=== PATIENT | male | born 1955 | race Caucasian/White ===

== ENCOUNTER 2022-06-17 06:40 | Inpatient (IN) | payer MEDICARE, MEDICAID ==
[~2022-06-17] VITALS: Ht 165.1 cm; Wt 64.4 kg
[2022-06-17] VITALS (7 sets, daily range): BP systolic 105–193; BP diastolic 48–99
[2022-06-17] MEDS ORDERED: IODIXANOL 320MG/ML 100 ML BOTTLE IV ONE (07:34)
[2022-06-17] MEDS ORDERED: NITROGLYCERIN 50MCG/ML 10ML VIAL (CATH LAB) IV ONE (08:00)
[2022-06-17] MEDS ORDERED: NICARDIPINE 100MCG/ML 10ML VIAL (CATH LAB) IV ONE (08:00)
[2022-06-17] MEDS ORDERED: DEXTROSE 50% WATER 50ML SYRINGE IV ONE (08:01)
[2022-06-17] MEDS ORDERED: ASPI-1497 PO (08:14)
[2022-06-17] MEDS ORDERED: HYDR50TA55 PO (08:14)
[2022-06-17] MEDS ORDERED: ATOR40TA70 PO (08:14)
[2022-06-17] MEDS ORDERED: FOLI1TAB87 MT (08:14)
[2022-06-17] MEDS ORDERED: HYDR-4135 PO (08:14)
[2022-06-17] MEDS ORDERED: ISOS30TA12 PO (08:14)
[2022-06-17] MEDS ORDERED: FURO80TA3 PO (08:14)
[2022-06-17] MEDS ORDERED: METR-167 MT (08:14)
[2022-06-17] MEDS ORDERED: INSU100I22 SQ (08:16)
[2022-06-17] MEDS ORDERED: AMLO10TA80 PO (08:16)
[2022-06-17] MEDS ORDERED: FERR324T4 PO (08:16)
[2022-06-17] MEDS ORDERED: PANT40SU PO (08:16)
[2022-06-17] MEDS ORDERED: NIFE-32 PO (08:18)
[2022-06-17] MEDS ORDERED: LIDOCAINE HCL/PF 1% 10 MG/ML 5ML VIAL ONE ×2 (08:21→09:44)
[2022-06-17] MEDS ORDERED: FENTANYL CITRATE/PF 50MCG/ML 2ML VIAL ONE (08:21)
[2022-06-17] MEDS ORDERED: MIDAZOLAM HCL 2 MG/2 ML VIAL ONE (08:21)
[2022-06-17] MEDS ORDERED: HEPARIN 1000 UNITS/ML 10ML ONE (08:25)
[2022-06-17] MEDS ORDERED: ASPIRIN 325MG TABLET ONE (09:44)
[2022-06-17] MEDS ORDERED: CLOPIDOGREL 75MG TABLET ONE (09:44)
[2022-06-17] MEDS ORDERED: HYDRALAZINE 20MG/ML VIAL ONE (10:18)
[2022-06-17] MEDS ORDERED: GUAIFENESIN 200MG/10ML SUGAR FREE UDC PO PRN (10:45)
[2022-06-17] MEDS ORDERED: HYDROCODONE/ACETAMINOPHEN 5/325MG TABLET PO PRN (10:45)
[2022-06-17] MEDS ORDERED: IPRATROPIUM/ALBUTEROL 0.5-3(2.5)MG/3ML NEB NEB PRN (10:45)
[2022-06-17] MEDS ORDERED: CLONIDINE 0.1MG TABLET PO PRN (10:45)
[2022-06-17] MEDS ORDERED: MAGNESIUM/ALUMINUM HYDROXIDE/SIMETHICONE 30ML UDC PO PRN (10:45)
[2022-06-17] MEDS ORDERED: ONDANSETRON HCL 4MG/2ML INJ IV PRN (10:45)
[2022-06-17] MEDS ORDERED: ACETAMINOPHEN 325MG TABLET PO PRN ×2 (10:45)
[2022-06-17] MEDS ORDERED: HYDRALAZINE 20MG/ML VIAL IV PRN (11:00)
[2022-06-17] MEDS ORDERED: NALOXONE HCL 0.4MG/ML VIAL IV PRN ×2 (11:00→13:15)
[2022-06-17] MEDS ORDERED: FAMOTIDINE 20MG TABLET PO NR (13:00)
[2022-06-17] MEDS ORDERED: NIFEDIPINE XL 60MG TAB PO SCH (13:00)
[2022-06-17 15:33] LABS: BASOPHILS % 0.3 % (0.0-2.0); HEMATOCRIT. 36.2 % (42.0-52.0); HEMOGLOBIN. 12.2 g/dL (14.0-18.0); MEAN CORPUSCULAR HEMOGLOBIN 34.2 pg (28.0-32.0); MEAN CORPUSCULAR VOLUME 101.5 fL (80.0-94.0); MEAN PLATELET VOLUME 8.2 fl (7.4-10.4); MONOCYTES % 4.9 % (2.0-8.0); NEUTROPHILS % 83.8 % (40.0-76.0); PLATELET 278 x1000/uL (130-400); RED BLOOD CELL COUNT 3.57 mill/uL (4.7-6.1); RED CELL DISTRIBUTION WIDTH 15.8 % (11.6-14.6)
[2022-06-17 15:41] LABS: CHLORIDE 102 mEq/L (98-107)
[2022-06-17 15:49] LABS: PHOSPHORUS 4.5 mg/dL (2.5-4.9)
[2022-06-17] MEDS: HYDRALAZINE HCL 50MG TABLET PO SCH (16:00)
[2022-06-17] MEDS ORDERED: CLONIDINE 0.2MG TABLET PO PRN (16:45)
[2022-06-17] MEDS ORDERED: ISOSORBIDE DINITRATE 30MG TABLET PO SCH (17:00)
[2022-06-17] MEDS: OMEPRAZOLE 20MG CAPSULE EXTENDED RELEASE PO SCH (17:05)
[2022-06-17] MEDS ORDERED: DEXTROSE 50% WATER 50ML SYRINGE IV PRN (18:00)
[2022-06-17] MEDS: BLOOD SUGAR DIAGNOSTIC STRIP TEST SCH (20:37)
[2022-06-17] MEDS ORDERED: HYDRALAZINE HCL 50MG TABLET PO SCH (21:00)
[2022-06-17] MEDS ORDERED: ATORVASTATIN CALCIUM 40MG TABLET PO SCH (21:00)
[2022-06-17] MEDS: INSULIN LISPRO 100 UNITS/ML SUBCUT SCH (21:00)
[2022-06-18] VITALS (9 sets, daily range): BP systolic 116–172; BP diastolic 55–76
[2022-06-18] MEDS: OMEPRAZOLE 20MG CAPSULE EXTENDED RELEASE PO SCH (07:09)
[2022-06-18] MEDS: BLOOD SUGAR DIAGNOSTIC STRIP TEST SCH ×2 (07:09→11:20)
[2022-06-18] MEDS: INSULIN LISPRO 100 UNITS/ML SUBCUT SCH ×2 (07:20→13:03)
[2022-06-18 08:34] LABS: BASOPHILS % 0.3 % (0.0-2.0); EOSINOPHILS % 0.6 % (0.0-5.0); HEMATOCRIT. 29.3 % (42.0-52.0); HEMOGLOBIN. 9.8 g/dL (14.0-18.0); LYMPHOCYTES % 11.8 % (20.0-50.0); MEAN CORPUSCULAR HEMOGLOBIN 33.4 pg (28.0-32.0); MEAN CORPUSCULAR VOLUME 99.8 fL (80.0-94.0); MEAN PLATELET VOLUME 8.5 fl (7.4-10.4); MONOCYTES % 7.7 % (2.0-8.0); NEUTROPHILS % 79.6 % (40.0-76.0); PLATELET 236 x1000/uL (130-400); RED BLOOD CELL COUNT 2.94 mill/uL (4.7-6.1); RED CELL DISTRIBUTION WIDTH 15.8 % (11.6-14.6)
[2022-06-18] MEDS ORDERED: NIFEDIPINE XL 90MG TAB PO SCH (09:00)
[2022-06-18] MEDS ORDERED: NIFEDIPINE XL 60MG TAB PO SCH (09:00)
[2022-06-18] MEDS ORDERED: FOLIC ACID/VITAMIN B COMP W-C TABLET PO SCH (09:00)
[2022-06-18] MEDS: HYDRALAZINE HCL 50MG TABLET PO SCH ×2 (09:18)
[2022-06-18 09:25] LABS: T4 FREE 0.79 ng/dL (0.76-1.46)
[2022-06-18] MEDS ORDERED: CLOPIDOGREL 75MG TABLET PO SCH (12:45)
[2022-06-18] MEDS ORDERED: ASPIRIN 81MG EC TABLET PO SCH (12:45)
[2022-06-18] MEDS ORDERED: CLOP75TA15 PO (13:03)
[2022-06-18] MEDS ORDERED: ASPI-1497 PO (13:03)
[2022-06-18] MEDS ORDERED: METOCLOPRAMIDE HCL 5MG TABLET PO SCH (16:50)
[2022-06-18] MEDS ORDERED: EPOETIN ALFA-EPBX 4,000 UNIT/ML VIAL SUBCUT SCH (21:00)
== END 2022-06-18 16:03 | disposition home health service (06) | DRG 246 ==
LOC: CCL 06:40 → SUPCPDRO 10:36 → 3WST 10:44
PROVIDERS: ADMIT Internal Medicine Cardiovascular Disease; ATTEND Internal Medicine Cardiovascular Disease
PROC: 027034Z Dilation of Coronary Artery, One Artery with Drug-eluting Intraluminal Device, Percutaneous Approach (ICD-10-PCS; principal; 2022-06-17)
PROC: 4A023N7 Measurement of Cardiac Sampling and Pressure, Left Heart, Percutaneous Approach (ICD-10-PCS; 2022-06-17)
PROC: B211YZZ Fluoroscopy of Multiple Coronary Arteries using Other Contrast (ICD-10-PCS; 2022-06-17)
PROC: B2151ZZ Fluoroscopy of Left Heart using Low Osmolar Contrast (ICD-10-PCS; 2022-06-17)
PROC: 5A1D70Z Performance of Urinary Filtration, Intermittent, Less than 6 Hours Per Day (ICD-10-PCS; 2022-06-18)
DX: I25.10 Atherosclerotic heart disease of native coronary artery without angina pectoris (principal); N18.6 End stage renal disease; I13.2 Hypertensive heart and chronic kidney disease with heart failure and with stage 5 chronic kidney disease, or end stage renal disease; N25.81 Secondary hyperparathyroidism of renal origin; E11.51 Type 2 diabetes mellitus with diabetic peripheral angiopathy without gangrene; E11.22 Type 2 diabetes mellitus with diabetic chronic kidney disease; E11.649 Type 2 diabetes mellitus with hypoglycemia without coma; D64.9 Anemia, unspecified; E78.5 Hyperlipidemia, unspecified; I50.9 Heart failure, unspecified; E83.39 Other disorders of phosphorus metabolism; Z79.4 Long term (current) use of insulin; Z99.2 Dependence on renal dialysis; Z87.01 Personal history of pneumonia (recurrent); Z82.49 Family history of ischemic heart disease and other diseases of the circulatory system
CPT/HCPCS: 36415; 80048; 80053; 80061; 82962; 83036; 83735; 84100; 84439; 84443; 85025; 92928; 92978; 93458; C1753; C1760; C1769; C1874; C1887; C1893; J0360; J1644; J1815; J2250; J3010; J3490; Q9967